=== PATIENT | male | born 1970 | race Caucasian/White ===

== ENCOUNTER 2017-01-03 07:29 | Emergency (ER) | payer BC ==
[~2017-01-03] VITALS: Ht 188 cm; Wt 126.6 kg
[2017-01-03 07:39] VITALS: BP 133/91
[2017-01-03] MEDS: KETOROLAC 30 MG/ML VIAL IM ONE (08:08)
[2017-01-03 08:25] VITALS: BP 134/84
== END 2017-01-03 08:25 | disposition home or self-care (01) ==
LOC: MED 07:29
DX: M75.32 Calcific tendinitis of left shoulder (principal)
CPT/HCPCS: 73030; 96372; 99284; J1885